=== PATIENT | male | born 1995 | race Two or more races ===

== ENCOUNTER 2018-09-15 01:38 | Emergency (ER) | payer OTHER ==
[~2018-09-15] VITALS: Ht 170.2 cm; Wt 63.5 kg
[2018-09-15 02:54] VITALS: BP 113/55
== END 2018-09-15 03:50 | disposition home or self-care (01) ==
LOC: ER 01:38 → EDBD 01:38 → ER 03:50
DX: R07.89 Other chest pain (principal); M79.604 Pain in right leg; V49.49XA Driver injured in collision with other motor vehicles in traffic accident, initial encounter; Y93.89 Activity, other specified; Y99.8 Other external cause status; Y92.410 Unspecified street and highway as the place of occurrence of the external cause
CPT/HCPCS: 71045; 73590